=== PATIENT | female | born 1980 | race American Indian/Alaskan Native ===

== ENCOUNTER 2025-01-19 07:19 | Inpatient (IN) | payer MEDICAID, SELFPAY ==
[2025-01-19] VITALS (7 sets, daily range): BP systolic 126–170; BP diastolic 77–106; PULSE 72–95; RESP 16–98; TEMP 36.3–37.1; O2SAT 98–100; BMI 27.9
--- NOTE | 2025-01-19 08:05 | XR_ITS ---
EXAMINATION: CT facial bones wo con HISTORY: abscess to nose and face COMPARISON: 09/23/2014, CT maxillofacial. TECHNIQUE: Multidetector CT of the face without contrast. 2D and 3D reconstructions were created on a separate workstation and submitted for interpretation. FINDINGS: No acute fracture or dislocation is identified. Again seen is an old fracture involving the right orbital floor with retropulsion of a small amount of retro-orbital fat into the right maxillary sinus. There is also an old irregularity of the right lamina papyracea, similar to prior. There is extensive subcutaneous soft tissue swelling without a well-defined collection involving the lower half of the face and upper neck. Soft tissue swelling is most pronounced about the nose and also extends to the preorbital soft tissues. There is no graying of the intraconal fat. There are multiple prominent facial and cervical chain lymph nodes. Assessment for rim-enhancing fluid collection cannot be made due to lack of intravenous contrast. A right maxillary mucous retention cyst is noted. There is dental amalgam. Globes are grossly unremarkable. Intracranial findings are grossly unremarkable. IMPRESSION: 1. Extensive skin thickening and subcutaneous stranding centered about the nose but extending across the face and upper neck to include the preorbital soft tissues, which could be seen with spreading infection such as cellulitis. No well-defined collection is identified, though evaluation is limited without intravenous contrast. 2. Multiple prominent facial and cervical chain lymph nodes are probably reactive, but attention on clinical follow-up is recommended to exclude other underlying process. 3. Similar remote right orbital fractures as above.
--- NOTE | 2025-01-19 08:07 | EDRME_ITS ---
Rapid Medical Screening Exam E Arrival date/time: 01/19/25 07:19 This is a 44-year-old female that comes into the emergency room with complaints of facial swelling. Patient states that on approximately January 14 patient states that she was picking out her nose hairs. Patient states she noticed the next day her nose got a little red and the following days it started becoming slightly swollen. Patient states on January 16, 2025 patient states that she went to [facility] and they gave her Keflex 500 mg 4 times daily and they also gave her Bactroban. Patient states that she has been on antibiotics since and the swelling is now traveling to the rest of her face. Patient states she has pus coming out of her nose. Patient complains of chills and has not noticed a fever. Patient reports history of high blood pressure and takes lisinopril. I have greeted and performed a focused initial assessment of this patient. Initial appropriate labs ordered at this time. A comprehensive ED assessment and evaluation of the patient and analysis of all test and completion of medical decision making process will be conducted by additional ED provider. Chief Complaint: Epistaxis/Nasal Foreign Body Time Seen by Provider: 01/19/25 07:30 Vital signs: Vital Signs Temperature 98.7 F 01/19/25 07:44 Pulse Rate 95 01/19/25 07:44 Respiratory Rate 18 01/19/25 07:44 Blood Pressure 164/101 H 01/19/25 07:44 Pulse Oximetry (%) 100 01/19/25 07:44 Oxygen Delivery Method Room Air 01/19/25 07:44 Exam: Alert and oriented, nose erythemic swollen, breathing even unlabored Clinical Impression: Facial swelling
--- NOTE | 2025-01-19 08:19 | PD.EDEPIST ---
ED Epistaxis RME/HPI General Chief complaint: Epistaxis/Nasal Foreign Body Stated complaint: SWOLLEN, RED NOSE Time Seen by Provider: 01/19/25 07:30 Arrival date/time: 01/19/25 07:19 RME / HPI RME / HPI Narrative: 01/19/25 07:19 This is a 44-year-old female that comes into the emergency room with complaints of facial swelling. Patient states that on approximately January 14 patient states that she was picking out her nose hairs. Patient states she noticed the next day her nose got a little red and the following days it started becoming slightly swollen. Patient states on January 16, 2025 patient states that she went to [facility] and they gave her Keflex 500 mg 4 times daily and they also gave her Bactroban. Patient states that she has been on antibiotics since and the swelling is now traveling to the rest of her face. Patient states she has pus coming out of her nose. Patient complains of chills and has not noticed a fever. Patient reports history of high blood pressure and takes lisinopril. I have greeted and performed a focused initial assessment of this patient. Initial appropriate labs ordered at this time. A comprehensive ED assessment and evaluation of the patient and analysis of all test and completion of medical decision making process will be conducted by additional ED provider. Exam: Alert and oriented, nose erythemic swollen, breathing even unlabored Impression: Facial swelling Related Data Home Medications ?Medication ?Instructions ?Recorded ?Confirmed lisinopril 10 mg tablet 10 mg PO QDAY 11/17/23 11/17/23 Allergies Allergy/AdvReac Type Severity Reaction Status Date / Time No Known Allergies Allergy Verified 01/19/25 07:22 Course Orders Category Date Time Status CT facial bones wo con Stat Exams 01/19/25 08:05 Ordered Blood Culture (Lab) Stat Lab 01/19/25 08:07 Ordered CBC Stat Lab 01/19/25 08:06 Ordered CRP [C-Reactive Protein] Stat Lab 01/19/25 08:07 Ordered Comprehensive Metabolic Panel Stat Lab 01/19/25 08:07 Ordered Lactate (Lactic Acid) Stat Lab 01/19/25 08:07 Ordered Procalcitonin Stat Lab 01/19/25 08:07 Ordered Vital Signs Vital signs: Vital Signs Temperature 98.7 F 01/19/25 07:44 Pulse Rate 95 01/19/25 07:44 Respiratory Rate 18 01/19/25 07:44 Blood Pressure 164/101 H 01/19/25 07:44 Pulse Oximetry (%) 100 01/19/25 07:44 Oxygen Delivery Method Room Air 01/19/25 07:44 Discharge Plan Prescriptions/Referrals Prescriptions/Med Rec: No Action lisinopril 10 mg Tablet 10 mg PO QDAY Referrals: Elliot Conroy PA-C [Primary Care Provider] - In 1 week Patient/Caregiver Discharge Instructions Print Language: Botswanan
--- NOTE | 2025-01-19 09:08 | EDNOTE_ITS ---
ED Epistaxis RME/HPI General Chief complaint: Epistaxis/Nasal Foreign Body Stated complaint: SWOLLEN, RED NOSE Time Seen by Provider: 01/19/25 07:30 Arrival date/time: 01/19/25 07:19 Mode of arrival: ambulatory Limitations: no limitations RME / HPI RME / HPI Narrative: 01/19/25 07:19 This is a 44-year-old female that comes into the emergency room with complaints of facial swelling. Patient states that on approximately January 14 patient states that she was picking out her nose hairs. Patient states she noticed the next day her nose got a little red and the following days it started becoming slightly swollen. Patient states on January 16, 2025 patient states that she went to [facility] and they gave her Keflex 500 mg 4 times daily and they also gave her Bactroban. Patient states that she has been on antibiotics since and the swelling is now traveling to the rest of her face. Patient states she has pus coming out of her nose. Patient complains of chills and has not noticed a fever. Patient reports history of high blood pressure and takes lisinopril. I have greeted and performed a focused initial assessment of this patient. Initial appropriate labs ordered at this time. A comprehensive ED assessment and evaluation of the patient and analysis of all test and completion of medical decision making process will be conducted by additional ED provider. DR. SNOW REYES ED EVALUATION: Patient is a 44-year-old female seen emerged primary concerns for facial swelling. Patient states that she has noticed swelling in her nose for the last 2 days, has been on Keflex compliant with her Keflex and mupirocin however despite this the swelling in her nose has gotten worse, and now has spread to both sides of her face. Denies any difficulty swallowing or shortness of breath. Patient states that purulent material has been coming out of the left side of her nare. Endorses chills. Denies fever. Denies current drug use. 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 Related Data Home Medications ?Medication ?Instructions ?Recorded ?Confirmed lisinopril 20 mg tablet 20 mg PO DAILY 01/19/2512/29 Allergies Allergy/AdvReac Type Severity Reaction Status Date / Time No Known Allergies Allergy Verified 01/19/25 07:22 Review of Systems Review of Systems Systems Reviewed: All systems reviewed, normal except as documented Past Medical History Past Medical History CARDIAC: Positive Cardiac Disorders and Hypertension Social History SMOKING STATUS: Current every day smoker ED Exam General Limitations: Present no limitations General appearance: Present alert Head Head exam: Present atraumatic (Patient with swelling along bilateral sides of her face, worse on the right side, tenderness palpation diffuse, no crepitus no fluctuance, patient with significant swelling appreciated at the nose, diffusely nose is red warm, significant purulent discharge appreciated from the left nare,) Eye Eye exam: Present PERRL, EOMI and other (Ecchymosis at the left eye upper no ttp) ENT ENT exam: Present normal exam, normal oropharynx, mucous membranes moist and other (Uvula midline tongue not elevated or deviated, no swelling appreciated in the mouth, no oropharyngeal lesions, no cervical LAD) Neck Neck exam: Present normal inspection Respiratory Respiratory exam: Present normal lung sounds bilaterally; Absent respiratory distress or wheezes Cardiovascular Cardiovascular exam: Present regular rate and normal rhythm Abdominal Exam Abdominal exam: Present soft; Absent distention or tenderness Back Exam Back exam: Present normal inspection Neurological Exam Neurological exam: Present alert, oriented X3 and CN II-XII intact Psychiatric Psychiatric exam: Present normal affect and normal mood Skin Skin exam: Present warm Course Quality Measures none Orders Category Date Time Status CT Screening NOW Care 01/19/25 09:12 Completed Insert IV NOW Care 01/19/25 09:47 Completed Referral - [facility] Stat Cons 01/19/25 11:[address] facial bones wo con Stat Exams 01/19/25 08:[address] soft tissue neck w con Stat Exams 01/19/25 10:12 Completed Blood Culture (Lab) Stat Lab 01/19/25 09:43 Completed CBC Stat Lab 01/19/25 09:40 Completed CRP [C-Reactive Protein] Stat Lab 01/19/25 09:40 Completed Comprehensive Metabolic Panel Stat Lab 01/19/25 09:40 Completed Lactate (Lactic Acid) Stat Lab 01/19/25 09:40 Completed Procalcitonin Stat Lab 01/19/25 09:40 Completed Clindamycin 900Mg Ivpb [Cleocin/D5w Ivpb] 50 ml Med 01/19/25 09:07 Disconti nued IV X1 Ibuprofen Tab [Motrin Tab] Med 01/19/25 12:59 Discontinued 800 mg PO X1 ONE Vital Signs Vital signs: Vital Signs Temperature 98.7 F 01/19/25 07:44 Pulse Rate 95 01/19/25 07:44 Respiratory Rate 18 01/19/25 07:44 Blood Pressure 164/101 H 01/19/25 07:44 Pulse Oximetry (%) 100 01/19/25 07:44 Oxygen Delivery Method Room Air 01/19/25 07:44 Epistaxis MDM Narrative MDM Narrative:: I, Rosa M Karimi, am scribing for and in the presence of Dr. Decker. Patient is a 44-year-old female seen emerged by concerns for facial swelling, and purulent discharge from the left side of her ear. Vital signs and exam as listed. Concern for nose abscess, deep space facial infection, cellulitis among others. Ordered blood cultures, labs, antibiotics, CT of the face with and without contrast. 1400: Discussed test HPI, PMHx, lab, radiology results and/or management with [facility], no emergent ENT intervention req'd at this time. Recommend admission for IV abx. 1501: Discussed test HPI, PMHx, lab, radiology results and/or management with [facility]. States the patient can follow up as an outpatient, no abscess identified on imaging. 1540: Given clinical picture, purulent discharge coming from patient's nose, failure of outpatient antibiotics, and worsening clinical case discussed admission with hospitalist service. Kindly accepted patient for admission. Patient does have outpatient referral to OMFS clinic at [facility] within 1 week. [facility] recommended the patient to be on Augmentin once discharged. Patient in agreement treatment plan. [facility]: Outpatient OMFS clinic (referral for patient) [address] [place] [address] f/u in [address] Teresita Matson Patient data External records reviewed:: [facility] previous records Clinical information provided by:: patient Social determinants that could affect healthcare access:: substance use (former) Patient has the following chronic illnesses:: See MDM. Other history includes hypertension. How is presenting disease/condition affected by chronic disease/condition?: exacerbated by Evaluation data The following diagnostics were reviewed and interpreted by me:: lab results and radiology exam(s) Lab and/or radiology exams considered but not ordered:: None Interpretation Summary: See MDM narrative above. RADIOLOGY Procedure(s): CT facial bones wo con Accession Number(s): [id number] cc: Owen Garcia MD; URIAH VILLAGOMEZ PA-C; Ingrid Nielson NP~ EXAMINATION: CT facial bones wo con HISTORY: abscess to nose and face COMPARISON: 09/23/2014, CT maxillofacial. TECHNIQUE: Multidetector CT of the face without contrast. 2D and 3D reconstructions were created on a separate workstation and submitted for interpretation. FINDINGS: No acute fracture or dislocation is identified. Again seen is an old fracture involving the right orbital floor with retropulsion of a small amount of retro-orbital fat into the right maxillary sinus. There is also an old irregularity of the right lamina papyracea, similar to prior. There is extensive subcutaneous soft tissue swelling without a well-defined collection involving the lower half of the face and upper neck. Soft tissue swelling is most pronounced about the nose and also extends to the preorbital soft tissues. There is no graying of the intraconal fat. There are multiple prominent facial and cervical chain lymph nodes. Assessment for rim-enhancing fluid collection cannot be made due to lack of intravenous contrast. A right maxillary mucous retention cyst is noted. There is dental amalgam. Globes are grossly unremarkable. Intracranial findings are grossly unremarkable. IMPRESSION: 1. Extensive skin thickening and subcutaneous stranding centered about the nose but extending across the face and upper neck to include the preorbital soft tissues, which could be seen with spreading infection such as cellulitis. No well-defined collection is identified, though evaluation is limited without intravenous contrast. 2. Multiple prominent facial and cervical chain lymph nodes are probably reactive, but attention on clinical follow-up is recommended to exclude other underlying process. 3. Similar remote right orbital fractures as above. Dictated By: Owen Garcia MD Procedure(s): CT soft tissue neck w con Accession Number(s): [id number] cc: Owen Garcia MD; URIAH VILLAGOMEZ PA-C; Ivon Decker MD~ EXAMINATION: CT soft tissue neck w con COMPARISON: 01/19/2025, CT facial bone. Findings: 3 mm axial sections were obtained through the neck following intravenous contrast enhancement according to routine protocol. 2D and 3D reconstructions were created on a separate workstation and submitted for interpretation. 50 cc [id number] intravenous contrast administered without deleterious effect. There is extensive subcutaneous soft tissue swelling involving the lower half of the face and upper neck. Soft tissue swelling is most pronounced about the nose and also extends to the preorbital soft tissues. There is no graying of the intraconal fat. About the tip of the nose, is an area of decreased density measuring 1.0 x 0.6 x 2.2 cm with some mild surrounding enhancement (series 3 image 19, series 5 image 9, series 7 image 30). There are multiple prominent facial and cervical chain lymph nodes. Prominent intraparotid right probable lymph node is also noted. A right maxillary mucous retention cyst is noted. There is dental amalgam. Globes are grossly unremarkable. Intracranial findings are grossly unremarkable. 3 millimeter left hemithyroid hypodensity. No acute fracture or dislocation is identified. Again seen is an old fracture involving the right orbital floor with retropulsion of a small amount of retro-orbital fat into the right maxillary sinus. There is also an old irregularity of the right lamina papyracea, similar to prior. Straightening of the normal cervical lordotic curvature which may be positional basis of muscle spasm. Mild degenerative disc disease centered at C5-C6. IMPRESSION: 1. Area of decreased density measuring up to 2.2 cm in greatest dimension centered at the tip of the nose with some mild surrounding enhancement concerning for developing abscess/phlegmonous changes. Extensive skin thickening and subcutaneous stranding concerning for infection also extends across the face and upper neck to include the preorbital soft tissues. Recommend ENT evaluation. 2. Multiple prominent facial and cervical chain lymph nodes are probably reactive, but attention on clinical follow-up is recommended to exclude other underlying process. 3. Similar remote right orbital fractures as above. Dictated By: Owen Garcia MD Medications / Prescriptions Medications or Prescriptions considered but not ordered:: None Medication administrations:: Medication Administration History Discontinued Medications Acetaminophen (Acetaminophen 325 Mg Tablet) 650 mg PO Q6H PRN PRN Reason: Fever >100.4 and Pain 1-3 Stop: 02/18/25 15:57 Last Admin: 01/19/25 23:51 Dose: 650 mg Documented By: CTF Cephalexin HCl (Cephalexin 250 Mg Capsule) 500 mg PO QID [facility] Stop: 01/27/25 11:59 Last Admin: 01/20/25 12:10 Dose: 500 mg Documented By: Doxycycline Hyclate (Doxycycline 100 Mg Tablet) 100 mg PO BID [facility] Stop: 01/27/25 20:59 Enoxaparin Sodium (Enoxaparin Sod Inj 40 Mg/0.4 Ml Syringe) 40 mg SC QDAY [facility] Stop: 02/03/25 08:59 Last Admin: 01/20/25 08:48 Dose: 40 mg Documented By: MR Clindamycin Phosphate (Cleocin/D5w Ivpb) 50 mls @ 100 mls/hr IV X1 ONE Stop: 01/19/25 09:36 Last Infusion: 01/19/25 11:44 Dose: Infused Documented By: Admin: 01/19/25 09:59 Dose: 100 mls/hr Documented By: ANGEL Clindamycin/Sodium Chloride (Cleocin/Ns Ivpb) 600 mg in 50 mls @ 100 mls/hr IV Q8HR [facility] Stop: 01/26/25 16:31 Last Admin: 01/20/25 05:41 Dose: 100 mls/hr Documented By: Infusion: 01/20/25 00:16 Dose: Infused Documented By: Admin: 01/19/25 23:46 Dose: 100 mls/hr Documented By: Infusion: 01/19/25 18:32 Dose: Infused Documented By: [facility] Admin: 01/19/25 18:02 Dose: 100 mls/hr Documented By: FILI Ibuprofen (Ibuprofen Tab 400 Mg Tablet) 800 mg PO X1 ONE Stop: 01/19/25 13:00 Last Admin: 01/19/25 13:05 Dose: 800 mg Documented By: DB Lisinopril (Lisinopril 2.5 Mg Tablet) 10 mg PO DAILY TUNG Stop: 02/19/25 08:59 Last Admin: 01/20/25 08:47 Dose: Not Given Documented By: MR Non-Admin Reason: SEE NURSE NOTE Nicotine (Nicotine Patch 21 Mg/24 Hr Patch.Td24) 21 mg TOP DAILY TUNG Stop: 02/19/25 08:59 Last Admin: 01/20/25 08:45 Dose: Not Given Documented By: MR Non-Admin Reason: Patient Refused Nicotine (Nicotine Patch 21 Mg/24 Hr Patch.Td24) 21 mg TOP DAILY PRN PRN Reason: Nicotine Withdx. Stop: 02/19/25 08:59 Ondansetron HCl (Ondansetron Inj 2 Mg/Ml Inj 2 Ml) 4 mg IVP Q6H PRN; Protocol PRN Reason: NAUSEA OR VOMITING Stop: 02/18/25 15:57 Oxycodone/Acetaminophen (Oxycodone/Apap 5/325 Tablet) 1 tab PO Q6H PRN PRN Reason: PAIN SCALE 4-10(Mod-Sev Stop: 01/24/25 15:57 Last Admin: 01/20/25 12:10 Dose: 1 tab Documented By: Admin: 01/20/25 04:42 Dose: 1 tab Documented By: Admin: 01/19/25 20:36 Dose: 1 tab Documented By: CTF Sennosides (Senna Tablet) 1 tab PO QDAY PRN; Protocol PRN Reason: constipation Stop: 02/18/25 15:57 See above Consultations Consultation(s) initiated? (list below): Yes Consultation #1 (Physician, Specialty, Details): Discussed test HPI, PMHx, lab, radiology results and/or management with Dr. Teresita Matson from [facility]. States the patient can follow up as an outpatient. Time: 15:01 Consultation #2 (Physician, Specialty, Details): Discussed the case with [facility] and they will admit the patient. Time: 15:40 Diagnosis Epistaxis Differential Diagnosis: other (cellulitis, nasal abscess, and sinusitis) Most likely diagnosis given after review of the tests above:: Facial cellulitis Nose infection Facial pain Admission Indicated Admission indicated?: indicated Admission Request Was there a request for admission?: Yes Admission Attestation Admission request attestation: Discussed case with Hospitalist service regarding admission. Discussed patients ED course, exam findings, labs, and radiology results. The Hospitalist [agrees] to accept the patient for admission. Disposition Plan Disposition Plan: Admit (Medsurg) Discharge Attestation Discharge Attestation: Total critical care time: Approximately?36?minutes Due to a high probability of clinically significant, life threatening deterioration, the patient required my highest level of preparedness to intervene emergently and I personally spent this critical care time directly and personally managing the patient. This critical care time included obtaining a history; examining the patient; pulse oximetry; ordering and review of studies; arranging urgent treatment with development of a management plan; evaluation of patient's response to treatment; frequent reassessment; and, discussions with other providers. This critical care time was performed to assess and manage the high probability of imminent, life-threatening deterioration that could result in multi-organ failure. It was exclusive of separately billable procedures and treating other patients and teaching time. Please see MDM section and the rest of the note for further information on patient assessment and treatment. Discharge Plan Plan Patient Disposition: Admit Acute Care w/in Hospital Patient condition on transfer: Stable Problem List Clinical Impression: Cellulitis of face, Infection of nose, Facial pain Patient/Caregiver Discharge Instructions Discharge Activity: activity as tolerated
[2025-01-19 09:51] LABS: Lactate (Lactic Acid) 1.0 mMol/L (0.4-2.0)
[2025-01-19 09:56] LABS: Basophils # (Auto) 0.1 Thou/mm3 (0.0-0.2); Basophils % (Auto) 1 % (0-2.5); Eosinophils # (Auto) 0.2 Thou/mm3 (0.0-0.5); Eosinophils % (Auto) 1 % (0-10); Hematocrit 45.0 % (36.0-46.0); Hemoglobin 14.6 g/dL (12.0-16.0); Immature Granulocytes Auto 0.03 Thou/mm3 (0.00-0.00); Lymphocytes # (Auto) 1.2 Thou/mm3 (1.0-4.8); Lymphocytes % (Auto) 10 % (10-50); Mean Corpuscular HGB Conc 32.4 g/dl (31.0-37.0); Mean Corpuscular Hemoglobin 28.0 pg (25.0-35.0); Mean Corpuscular Volume 86 fL (80-100); Monocytes # (Auto) 0.6 Thou/mm3 (0.0-0.8); Monocytes % (Auto) 5 % (0-12); Neutrophils # (Auto) 10.3 Thou/mm3 (1.8-7.7); Neutrophils % (Auto) 83 % (37-80); Nucleated Red Blood Cell # 0.00 Thou/mm3 (0.00-0.00); Nucleated Red Blood Cell % 0 /100 WBC (0); Platelet Count 310 Thou/mm3 (140-440); RDW Standard Deviation 41.1 fL (36.4-46.3); Red Blood Count 5.21 Miln/mm3 (4.00-5.20); White Blood Count 12.4 Thou/mm3 (3.6-11.0)
--- NOTE | 2025-01-19 10:12 | XR_ITS ---
EXAMINATION: CT soft tissue neck w con COMPARISON: 01/19/2025, CT facial bone. Findings: 3 mm axial sections were obtained through the neck following intravenous contrast enhancement according to routine protocol. 2D and 3D reconstructions were created on a separate workstation and submitted for interpretation. 50 cc Isovue-370 intravenous contrast administered without deleterious effect. There is extensive subcutaneous soft tissue swelling involving the lower half of the face and upper neck. Soft tissue swelling is most pronounced about the nose and also extends to the preorbital soft tissues. There is no graying of the intraconal fat. About the tip of the nose, is an area of decreased density measuring 1.0 x 0.6 x 2.2 cm with some mild surrounding enhancement (series 3 image 19, series 5 image 9, series 7 image 30). There are multiple prominent facial and cervical chain lymph nodes. Prominent intraparotid right probable lymph node is also noted. A right maxillary mucous retention cyst is noted. There is dental amalgam. Globes are grossly unremarkable. Intracranial findings are grossly unremarkable. 3 millimeter left hemithyroid hypodensity. No acute fracture or dislocation is identified. Again seen is an old fracture involving the right orbital floor with retropulsion of a small amount of retro-orbital fat into the right maxillary sinus. There is also an old irregularity of the right lamina papyracea, similar to prior. Straightening of the normal cervical lordotic curvature which may be positional basis of muscle spasm. Mild degenerative disc disease centered at C5-C6. IMPRESSION: 1. Area of decreased density measuring up to 2.2 cm in greatest dimension centered at the tip of the nose with some mild surrounding enhancement concerning for developing abscess/phlegmonous changes. Extensive skin thickening and subcutaneous stranding concerning for infection also extends across the face and upper neck to include the preorbital soft tissues. Recommend ENT evaluation. 2. Multiple prominent facial and cervical chain lymph nodes are probably reactive, but attention on clinical follow-up is recommended to exclude other underlying process. 3. Similar remote right orbital fractures as above.
[2025-01-19 11:02] LABS: Albumin, Serum 5.2 gm/dL (3.5-5.0); Albumin/Globulin Ratio 1.5 (1.2-2.2); Alkaline Phosphatase 117 U/L (46-116); Anion Gap 9 (7-16); Aspartate Amino Transferase 16 U/L (0-34); BUN/Creatinine Ratio 8 Ratio (12-20); Bilirubin,Total 0.5 mg/dL (0.3-1.2); Blood Urea Nitrogen 8 mg/dL (9-23); C-Reactive Protein > 10.0 mg/dL (0.0-0.9); Calcium 10.1 mg/dL (8.3-10.6); Calcium (Corrected) 10.1 mg/dL (8.5-10.1); Carbon Dioxide 25.6 mMol/L (20.0-31.0); Chloride 105 mMol/L (98-107); Creatinine (Component) 1.0 mg/dL (0.6-1.3); Estimated Creatinine Clearance 72.5 mL/min (>60); Globulin 3.4 gm/dL (2.3-3.5); Glucose 91 mg/dL (74-106); Osmolality,Calculated 277 (275-295); Potassium 3.7 mMol/L (3.4-5.1); Sodium 140 mMol/L (136-145); Total Protein 8.6 gm/dL (5.7-8.2); eGFR > 60 See Note
[2025-01-19 11:09] LABS: Alanine Aminotransferase 10 U/L (10-49); Procalcitonin 0.05 ng/ml (0.0-0.49)
--- NOTE | 2025-01-19 11:53 | PC.CC ---
Addendum entered by Corbin Loya RN 01/19/25 15:27: 1503: Sweta called, pt can be followed up as outpatient outpatient OMFS clinic [address] [place] [address] f/u in [address] Teresita Matson Addendum entered by Corbin Loya RN 01/19/25 13:26: 1320: Sweta spoke with Dr. Decker, she will present to OMFS team and call back. 1316: spoke to Sweta w/ [facility], transfer request initiated. Addendum entered by Corbin Loya RN 01/19/25 13:07: 1302: received call back from Dr. Decker, she asked for search for another facility. Clinicals and imaging sent to [facility]. Addendum entered by Corbin Loya RN 01/19/25 13:01: 1253: called Dr. Decker, unable to speak to her at this time. Updated ED tracker with info. I will call Dr. Decker back 1251: Informed Dr. Decker of determination. She asked what IV abx, informed her I asked but none was provided. She asked that I ask again. Called Mal back, she reached out to Dr. Wilkerson, he rec: IV Vanco. 1245: received call back from Mal. Dr. Denis Wilkerson (ENT) stated no abscess, rec IV abx, no transfer needed. Addendum entered by Corbin Loya RN 01/19/25 12:27: 1221: Clinicals sent to [facility]. Mal spoke to Dr. Decker. Mal will present to ENT and call back. 1214: Neck CT results avail, called [facility], Mal confirmed ENT oncall. transfer request initiated. Original Note: 1152: while gathering clinicals, soft tissue neck CT has not resulted. called and spoke to Dr. Decker informed her about the CT not resulted, she stated to wait for the results of the neck CT then start transfer request. I will continue to monitor for results. 1135: received call from Dr. Decker for transfer request for ENT or OMFS for soft tissue neck mass.
[2025-01-19] MEDS: IBUPROFEN TAB 400 MG TABLET 800 MG PO (13:05)
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
[2025-01-19 17:09] LABS: HIV (1&2) Antibody Rapid Non-Reactive
[2025-01-19] MEDS: CLINDAMYCIN/NS 600 MG IVPB 600 MG/50 ML BAG 100 MG IV ×2 (18:02→23:46)
[2025-01-19 19:59] LABS: Hepatitis A Antibody IgM Non Reactive (Non React); Hepatitis B Core Antibody IgM Non Reactive (Non React); Hepatitis B Surface Antigen Non Reactive (Non React); Hepatitis C Antibody Non Reactive (Non React)
[2025-01-19 21:32] LABS: Amphetamine/Methamp Scrn,U Positive (Negative); Barbiturate Screen,Urine Negative (Negative); Benzodiazepines Screen,Urine Negative (Negative); Benzoylecgonine Screen, Ur Negative (Negative); Fentanyl Screen,Urine Negative (Negative); Opiate Screen,Urine Negative (Negative); THC Screen,Urine Positive (Negative)
--- NOTE | 2025-01-19 23:43 | PC.NURSE ---
point of contact #2: Jesse Hawley(son) cp#[phone].
[2025-01-19] MEDS: ACETAMINOPHEN 325 MG TABLET 650 MG PO (23:51)
[2025-01-20] VITALS (8 sets, daily range): BP systolic 118–148; BP diastolic 74–91; PULSE 76–115; RESP 18–99; TEMP 36.2–36.8; O2SAT 94–100
--- NOTE | 2025-01-20 05:02 | PC.NURSE ---
seen and examined by Dr. Kellogg.
[2025-01-20] MEDS: CLINDAMYCIN/NS 600 MG IVPB 600 MG/50 ML BAG 100 MG IV (05:41)
[2025-01-20 05:44] LABS: Basophils # (Auto) 0.1 Thou/mm3 (0.0-0.2); Basophils % (Auto) 1 % (0-2.5); Eosinophils # (Auto) 0.3 Thou/mm3 (0.0-0.5); Eosinophils % (Auto) 5 % (0-10); Hematocrit 35.6 % (36.0-46.0); Hemoglobin 11.4 g/dL (12.0-16.0); Immature Granulocytes Auto 0.02 Thou/mm3 (0.00-0.00); Lymphocytes # (Auto) 1.8 Thou/mm3 (1.0-4.8); Lymphocytes % (Auto) 27 % (10-50); Mean Corpuscular HGB Conc 32.0 g/dl (31.0-37.0); Mean Corpuscular Hemoglobin 28.1 pg (25.0-35.0); Mean Corpuscular Volume 88 fL (80-100); Monocytes # (Auto) 0.5 Thou/mm3 (0.0-0.8); Monocytes % (Auto) 8 % (0-12); Neutrophils # (Auto) 3.9 Thou/mm3 (1.8-7.7); Neutrophils % (Auto) 59 % (37-80); Nucleated Red Blood Cell # 0.00 Thou/mm3 (0.00-0.00); Nucleated Red Blood Cell % 0 /100 WBC (0); Platelet Count 286 Thou/mm3 (140-440); RDW Standard Deviation 41.7 fL (36.4-46.3); Red Blood Count 4.06 Miln/mm3 (4.00-5.20); White Blood Count 6.6 Thou/mm3 (3.6-11.0)
[2025-01-20 06:24] LABS: Alanine Aminotransferase < 7 U/L (10-49); Albumin, Serum 4.0 gm/dL (3.5-5.0); Albumin/Globulin Ratio 1.7 (1.2-2.2); Alkaline Phosphatase 84 U/L (46-116); Anion Gap 9 (7-16); Aspartate Amino Transferase 12 U/L (0-34); BUN/Creatinine Ratio 11 Ratio (12-20); Bilirubin,Total 0.3 mg/dL (0.3-1.2); Blood Urea Nitrogen 11 mg/dL (9-23); Calcium 9.1 mg/dL (8.3-10.6); Calcium (Corrected) 9.1 mg/dL (8.5-10.1); Carbon Dioxide 25.9 mMol/L (20.0-31.0); Chloride 105 mMol/L (98-107); Creatinine (Component) 1.0 mg/dL (0.6-1.3); Estimated Creatinine Clearance 72.5 mL/min (>60); Globulin 2.4 gm/dL (2.3-3.5); Glucose 99 mg/dL (74-106); Magnesium 1.8 mg/dL (1.6-2.6); Osmolality,Calculated 278 (275-295); Phosphorous 3.6 mg/dL (2.4-5.1); Potassium 3.8 mMol/L (3.4-5.1); Sodium 140 mMol/L (136-145); Total Protein 6.4 gm/dL (5.7-8.2); eGFR > 60 See Note
[2025-01-20] MEDS: ENOXAPARIN SOD INJ 40 MG/0.4 ML SYRINGE SC (08:48)
--- NOTE | 2025-01-20 08:51 | PC.NURSE ---
THIS MORNING PT REFUSED HER BP MEDICATION, PATIENT REPORTS I TOOK MY BLOOD PRESSURE MEDICATION THAT I BROUGHT FROM HOME. EDUCATION PROVIDED TO PT TO STOP TAKING HOME MEDICATIONS SHE WILL BE PROVIDED MEDICATIONS FROM HOSPITAL WHICH ARE MONITOR BY . PT VERBALIZE UNDERSTANDING.
--- NOTE | 2025-01-20 09:00 | PC.SS ---
Follow up note: On IV antibiotic. I.D recommendations pending.
--- NOTE | 2025-01-20 10:33 | ESPR_ITS ---
Subjective Subjective Interval history: asked to see for cellulitis. bc neg at 24h. Exam Vital Signs Temp Pulse Resp BP Pulse Ox O2 Del Method 97.1 F 82 18 128/74 99 Room Air 01/20/25 07:48 01/20/25 08:47 01/20/25 07:48 01/20/25 08:47 01/20/25 07:48 01/20/25 07:48 Objective - Internal Medicine Labs 01/20/25 04:58 01/20/25 04:58 Labs: Laboratory Results - last 24 hr 01/19/25 01/19/25 01/20/25 09:40 20:36 04:58 WBC 6.6 D RBC 4.06 Hgb 11.4 L D Hct 35.6 L MCV 88 MCH 28.1 MCHC 32.0 RDW Std Deviation 41.7 Plt Count 286 Neut % (Auto) 59 Lymph % (Auto) 27 [place] % (Auto) 8 Eos % (Auto) 5 Baso % (Auto) 1 Neut # (Auto) 3.9 Lymph # (Auto) 1.8 [place] # (Auto) 0.5 Eos # (Auto) 0.3 Baso # (Auto) 0.1 Immature Gran # (Auto) 0.02 H Absolute Nucleated RBC 0.00 Immature Gran % 0 Nucleated RBC % 0 Sodium 140 140 Potassium 3.7 3.8 Chloride 105 105 Carbon Dioxide 25.6 25.9 Anion Gap 9 9 BUN 8 L 11 Creatinine 1.0 1.0 Estim Creat Clear Calc 72.5 72.5 eGFR > 60 > 60 BUN/Creatinine Ratio 8 L 11 L Glucose 91 99 Calculated Osmolality 277 278 Calcium 10.1 9.1 Corrected Calcium 10.1 9.1 Phosphorus 3.6 Magnesium 1.8 Total Bilirubin 0.5 0.3 AST 16 12 ALT 10 < 7 L Alkaline Phosphatase 117 H 84 D C-Reactive Prot, Quant > 10.0 H Total Protein 8.6 H 6.4 Albumin 5.2 H 4.0 D Globulin 3.4 2.4 Albumin/Globulin Ratio 1.5 1.7 Procalcitonin 0.05 Urine Opiates Screen Negative Urine Fentanyl Screen Negative Ur Barbiturates Screen Negative U Amphetamin/Meth Scrn Positive A U Benzodiazepines Scrn Negative U Cocaine Metab Screen Negative U Marijuana (THC) Screen Positive A Hepatitis A IgM Ab Non Reactive Hep Bs Antigen Non Reactive Hep B Core IgM Ab Non Reactive Hepatitis C Antibody Non Reactive HIV 1&2 Antibody Rapid Non-Reactive Assessment & Plan A&P Narrative cellulitis no scooter no dm II failed po keflex but only a few doses as outpt changed to po doxy and keflex. suggest another week of both. f/u with primary. I can not see her in f/u Time Spent With Patient Time: Total time spent is greater than 50% in coordination of care (as documented) at patient's floor/unit and/or counseling patient:
--- NOTE | 2025-01-20 12:22 | PC.NURSE ---
DR. MANCERA MADE AWARE OF SWELLING ON ANUS BLISTER LIKE. PER DR. CALDERON CRUZ WILL BE COMING UP TO ASSESS PT.
--- NOTE | 2025-01-20 14:19 | PC.SS ---
SS met with patient regarding her d/c plan. Pt is alert/oriented. Pt was admitted for Facial Cellulitis. Pt confirmed demographic and contact information is correct on facesheet. Pt resides alone. Pt ambulates independently without assistance or DME. Pt is ok with all ADLs. Patient?s pharmacy of choice is [facility] on [address] Pt states she receives financial assistance from the [facility]. Pt named her son Jesse Sanchez, phone# [phone] or Rob Lees, friend, phone# [phone] medical decision maker if she is unable. Patient?s choice is to return home upon d/c. Pt states she followed up with PCP 01-16-25. Pt states she is not diabetic and is not on dialysis. Patient's friend will provide transportation home. D/C plan: Return home Next of Kin: Jesse Hawley, son, phone# [phone] or Rob Lees, friend, phone# [phone] PCP: [facility] Address: Correct on facesheet
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
--- NOTE | 2025-01-21 07:32 | ESCONSULT_ITS ---
RE: IOANA GARCIA : 1980 DATE OF CONSULTATION: 01/20/2025 REFERRING PHYSICIAN: Aníbal Nunez MD. REASON FOR CONSULTATION: Cellulitis of the nares. HISTORY OF PRESENT ILLNESS: The patient is a 44-year-old woman. She is a negative HIV and hepatitis C testing. She lives on [facility] in [place] and has no other health problems. She has never had surgery. She is 2, para 2, one to one and one live vaginally. She takes no medications on a regular basis. She came in for cellulitis of the face. Not sure why she was admitted, but she was. She apparently had failed oral therapy, but only had the Keflex for couple of days. She was picking her nose here the other day and the nose became slightly swollen, so she is given Keflex 500 4 times a day and some Bactroban and her blood cultures are so far negative. I am going to give her some oral of doxycycline and Keflex and hope that is sufficient. ALLERGIES: NONE NOTED. IMMUNIZATIONS: Last tetanus is uncertain. She does take a flu shot every year. She has had couple of COVID vaccines and has not had a pneumococcal vaccination. FAMILY HISTORY: Positive for her father having cirrhosis. Mother had some sort of skin cancer on the ear. SOCIAL HISTORY: She lives alone with some help from friends. Denies alcohol or drug use. Smokes less than half pack a day. PHYSICAL EXAMINATION: GENERAL: Her exam is benign. HEENT: The patient has a slightly erythematous nose. It is slightly tender. ABDOMEN: There is no appreciable rebound or guarding. Abdomen is benign. EXTREMITIES: Unremarkable. NEUROLOGIC: Grossly normal. ASSESSMENT: 1. Cellulitis of the nose in a 44-year-old otherwise healthy woman, she can probably go home on doxycycline and Keflex if blood cultures are negative. I will check on her again Monday if she remains, but if she goes home before then, no problem. She has a negative HIV and hepatitis C test. If she needs to be incarcerated, I have no objection. DT: 10:45:24 TT: 11:05:00 Ref: [id number] - TID: [id number] [facility]
== END 2025-01-20 16:09 | disposition home or self-care (01) | DRG 115 ==
LOC: SERX 15:53 → SERHOLD 16:23 → S3NX 17:27
PROVIDERS: Nurse Practitioner Family; Admitting Provider Student in an Organized Health Care Education/Training Program; Emergency Provider Emergency Medicine; PCP Physician Assistant Medical; Visit Provider Internal Medicine
DX: J34.0 Abscess, furuncle and carbuncle of nose (principal); I10 Essential (primary) hypertension; F17.210 Nicotine dependence, cigarettes, uncomplicated; S00.12XA Contusion of left eyelid and periocular area, initial encounter; S02.85XA Fracture of orbit, unspecified, initial encounter for closed fracture; L03.211 Cellulitis of face; W22.8XXA Striking against or struck by other objects, initial encounter
CPT/HCPCS: 36415; 70486; 70491; 80053; 80074; 80307; 83605; 83735; 84100; 84145; 85025; 86140; 86703; 87040; 87070; 87077; 87186; 87205; 87635; 96365; 96366; 99284; A4649; J0736; J1650; Q9967; S0077; A9270; J0737